=== PATIENT | female | born 2000 | race Caucasian/White ===

== ENCOUNTER 2021-09-12 10:28 | Emergency (ER) | payer OTHER, SELFPAY ==
[2021-09-12 10:38] VITALS: BP 141/92; PULSE 115; RESP 16; TEMP 36.9; O2SAT 100
--- NOTE | 2021-09-12 11:04 | ED.URI ---
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 Patient states that she has had 4 days of sore throat with for the past 2 days she has had runny nose and some headache discomfort. Patient states that she has had a little cough, denies any shortness of breath or any wheezing or feelings of being short of breath.Patient reports that she has been taking some Advil for her symptoms, denies ay known fevers,chills, sweats, or body aches. patient reports that she has had COVID vaccinations. MD elicited complaint: cough, sore throat, rhinorrhea, nasal congestion and other (headache) Treatments prior to arrival: ibuprofen Related Data Home Medications Medication Instructions Recorded Confirmed norgestimate-ethinyl estradiol tablet 09/12/21 spironolactone 09/12/21 Allergies Allergy/AdvReac Type Severity Reaction Status Date / Time No Known Allergies Allergy Unverified 12/18/14 13:11 Review of Systems Review of Systems: CONSTITUTIONAL: Denies fever, chills, or sweats. EYES: Denies visual changes, redness, or discharge. ENT: Positive for rhinorrhea, congestion, sore throat, no otalgia. CARDIOVASCULAR: Denies chest pain, palpitations, or edema. RESPIRATORY: Positive for cough denies dyspnea. GASTROINTESTINAL: Denies abdominal pain, nausea, vomiting, or diarrhea. GENITOURINARY: Denies dysuria or hematuria. SKIN: Denies rash or itching. MUSCULOSKELETAL: Denies back pain, joint pain, or myalgia. NEUROLOGIC: Positive for headache, no numbness, or weakness. PSYCHIATRIC: Denies anxiety or depression. All systems reviewed & are unremarkable except as noted in HPI and below PMFSH Past Medical History Medical History (Updated 09/12/21 @ 19:25 by America Bailey NP) Acne Surgical History Surgical History (Updated 09/12/21 @ 19:25 by America Bailey NP) No history of previous surgery Family History Family History (Updated 09/12/21 @ 19:24 by America Bailey NP) Father Heart disease Hypertension Grandparent Heart disease Cerebrovascular accident Social History Social History (Updated 09/12/21 @ 19:24 by America Bailey NP) Smoking status: Never smoker Alcohol intake: never Substance use: never Living arrangements: with roommate(s) Occupation/Education: student Gender identity (if verbalized by the patient): Female Comments At time of signature, agree with nursing past medical, surgical, social and family history. There is no relevant family history pertinent to the presenting complaint Exam Narrative: GENERAL: Well-appearing, well-nourished, and in no acute distress. HEAD: Normocephalic, atraumatic. EYES: PERRLA and EOMI. ENT: Nares red with clear rhinorrhea no epistaxis. Mucous membranes moist.TM's normal with good light reflex, Throat mild redness with no lesions or exudates, no tonsil enlargement, post nasal drainage. NECK: Supple. no lymphadenopathy CHEST: Clear to auscultation. No respiratory distress.SAO2 100% on room air. HEART: Regular rate and rhythm. No murmur heard. Normal peripheral pulses. ABDOMEN: Soft, nontender, nondistended, normal active bowel sounds. EXTREMITIES: Normal range of motion. No edema. SKIN: Warm, dry, no rash. NEURO: No focal deficits. Alert and oriented x3. Course Vital Signs Vital signs: Vital Signs Temperature 36.9 C 09/12/21 10:38 Pulse Rate 115 H 09/12/21 10:38 Respiratory Rate 16 09/12/21 10:38 Blood Pressure 141/92 H 09/12/21 10:38 Pulse Oximetry 100 09/12/21 10:38 Temperature 36.9 C 09/12/21 10:38 Pulse Rate 115 H 09/12/21 10:38 Respiratory Rate 16 09/12/21 10:38 Blood Pressure 141/92 H
== END 2021-09-12 11:21 | disposition home or self-care (01) ==
PROVIDERS: Emergency Provider Registered Nurse
DX: J06.9 Acute upper respiratory infection, unspecified (principal); J02.9 Acute pharyngitis, unspecified
CPT/HCPCS: 87081; 87880; 99213; G0463

== ENCOUNTER 2024-07-07 17:38 | Emergency (ER) | payer OTHER, SELFPAY ==
--- NOTE | ~2024-07-07 | CT_ITS ---
EXAMINATION: CT brain wo con DATE: 07/08/2024 15:29 INDICATION: Altered mental status. TECHNIQUE: Computed tomography (CT) of the head was performed without intravenous contrast. The mA wa s adjusted according to patient size. Iterative reconstruction technique was employed. The dose-lengt h product was 529.67 mGy-cm. COMPARISON: None FINDINGS: There is no intracranial hemorrhage, acute infarction, or abnormal intracranial mass lesion . The ventricles are normal in size. The paranasal sinuses are clear. The mastoid air cells are heather l. IMPRESSION: 1. Normal brain. Reviewed, dictated and finalized at location E. IMPRESSION: 1. Normal brain.
[2024-07-07 17:40] VITALS: BP 148/90; PULSE 97; RESP 19; TEMP 36.7; O2SAT 100
[2024-07-07 18:47] LABS: BEDSIDEPREGUCG Negative
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
[2024-07-07 19:03] LABS: Basophils Percent Auto 0.3 % (0.2-1.2); Eosinophils Absolute Auto 0.1 K/mm3 (0-0.3); Eosinophils Percent Auto 0.4 % (0-4.4); Hematocrit 47.7 % (37.0-47.0); Hemoglobin 15.2 g/dL (12.0-15.0); Immature Granulocyte Absolute 0.02 K/mm3 (0.00-0.031); Immature Granulocyte Percent A 0.2 % (0-0.5); Lymphocytes Absolute Auto 3.34 K/mm3 (0.9-3.2); Lymphocytes Percent Auto 28.8 % (18.3-44.2); Mean Corpuscular HGB Conc 31.9 g/dl (32-36); Mean Corpuscular Hemoglobin 30.6 pg (26-34); Mean Platelet Volume 9.1 fl (7.4-10.4); Monocytes Percent Auto 8.2 % (2.6-8.5); Neutrophils Absolute Auto 7.2 K/mm3 (1.3-6.7); Neutrophils Percent Auto 62.1 % (45.5-73.1); Platelet Count Result 297 k/mm3 (150-375); Red Blood Count 4.97 M/mm3 (4.2-5.4); Red Cell Distribution Width 13.4 % (11.5-14.5); White Blood Count 11.6 K/mm3 (4.5-10.0)
[2024-07-07 19:18] LABS: Amphetamine Screen Urine Positive (Negative); Barbiturate Screen Urine Negative (Negative); Benzodiazepines Screen Urine Negative (Negative); Cannabinoid Screen Urine Positive (Negative); Cocaine Screen Urine Negative (Negative); Methadone Screen Urine Negative (Negative); Opiate Screen Urine Negative (Negative); Phencyclidine Screen Urine Negative (Negative)
[2024-07-07 19:24] LABS: Ethanol < 10 mg/dL (<10)
[2024-07-07 19:28] LABS: Alanine Aminotransferase 32 U/L (6-35); Albumin Level 5.4 g/dL (3.5-5.1); Alkaline Phosphatase 64 U/L (38-126); Anion Gap 18 mmol/L (4-12); Aspartate Amino Transferase 35 U/L (14-36); Bilirubin,Total 1.6 mg/dL (0.2-1.3); Blood Urea Nitrogen 12 mg/dL (7-17); Carbon Dioxide 19 mmol/L (22-30); Chloride 100 mmol/L (98-107); Estimated CRCL calculation 107 ml/min; Estimated Glomerular Filt Rate > 60; Glucose 133 mg/dL (65-110); Potassium 4.6 mmol/L (3.4-5.0); Sodium 137 mmol/L (137-145)
[2024-07-07 19:52] LABS: Creatine Kinase 133 U/L (30-135)
[2024-07-07] MEDS: SODIUM CHLORIDE 0.9% IV 1,000 ML 999 ML IV CONT ×2 (20:01→20:51)
[2024-07-07 20:04] VITALS: BP 146/102; PULSE 98; RESP 16; O2SAT 100
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
[2024-07-07 20:40] LABS: Add Urine Microscopic? YES; Appearance Urine Cloudy (Clear); Bacteria Urine 4+ /hpf; Bilirubin Urine Negative (Negative); Blood Urine Negative (Negative); Color Urine Dark Yellow (Yellow); Glucose Urine UA Negative (Negative); Ketones Urine 1+ mg/dL (Negative); Leukocyte Esterase Ur Trace LEU/UL (Negative); Need Manual Microscopic Reviewed; Nitrate Urine Negative (Negative); Protein Urine 1+ mg/dL (Negative); Specific Grav Ur 1.036 (1.001-1.035); Squamous Epithelial Cell Urine Many /hpf (Few)
[2024-07-07] MEDS: LORazepam INJ (*CRX) 2 MG/ML VIAL 0.5 MG IV PUSH (20:50)
--- NOTE | 2024-07-07 20:54 | PC.NURSE ---
attempted to call crisis-awaiting call back
[2024-07-07 21:17] VITALS: BP 140/98; PULSE 87; RESP 15; O2SAT 100
[2024-07-07 23:00] LABS: Anion Gap 7 mmol/L (4-12); Blood Urea Nitrogen 9 mg/dL (7-17); Calcium 8.4 mg/dL (8.4-10.2); Carbon Dioxide 25 mmol/L (22-30); Chloride 105 mmol/L (98-107); Estimated CRCL calculation 145 ml/min; Estimated Glomerular Filt Rate > 60; Glucose 97 mg/dL (65-110); Potassium 3.6 mmol/L (3.4-5.0); Sodium 137 mmol/L (137-145)
--- NOTE | 2024-07-08 00:21 | PC.NURSE ---
Re-fax chart to [facility] at 0900 in the morning.
[2024-07-08] MEDS: NITROFURANTOIN MONOHYD MACROCR 100 MG CAP PO (02:03)
[2024-07-08 02:05] VITALS: BP 126/82; PULSE 100; RESP 18; O2SAT 100
[2024-07-08 02:14] LABS: Influenza A QL RT-PCR Negative (Negative); Influenza B QL RT-PCR Negative (Negative); RSV RNA, RT-PCR Negative (Negative); SARS-CoV-2 RNA PCR Negative (Negative)
[2024-07-08 05:46] VITALS: BP 140/98; PULSE 99; RESP 16; O2SAT 100
--- NOTE | 2024-07-08 09:48 | PC.NURSE ---
0830 called and ordered pt a breakfast meal tray [id number] breakfast meal tray has not arrived, called dietary for update, no answer at this time.
[2024-07-08 12:00] VITALS: BP 142/90; PULSE 89; RESP 16; TEMP 36.7; O2SAT 100
--- NOTE | 2024-07-08 17:30 | PC.NURSE ---
1727 Dinner meal tray ordered for pt.
--- NOTE | 2024-07-08 18:34 | PC.NURSE ---
1832 attempted to call report at [phone], no answer [id number] attempted to call report at [phone], no answer
== END 2024-07-08 19:00 ==
PROVIDERS: Physician Assistant; Emergency Provider Student in an Organized Health Care Education/Training Program
DX: F23 Brief psychotic disorder (principal); R82.71 Bacteriuria; E86.0 Dehydration; Z11.52 Encounter for screening for COVID-19; F41.9 Anxiety disorder, unspecified; F32.A Depression, unspecified; F90.9 Attention-deficit hyperactivity disorder, unspecified type; Z79.899 Other long term (current) drug therapy
CPT/HCPCS: 36415; 70450; 80048; 80053; 80307; 81001; 81025; 82550; 84443; 85025; 87086; 87088; 87637; 96361; 96374; 99285; A9270; J2060; J7030